=== PATIENT | male | born 1985 | race Caucasian/White ===

== ENCOUNTER 2021-12-08 02:48 | Emergency (ER) | payer MEDICAID ==
[~2021-12-08] VITALS: Ht 172.7 cm; Wt 70.0 kg
[2021-12-08] MEDS ORDERED: ondansetron 4mg rapidly disintigrating tab PO ONE (04:05)
[2021-12-08] MEDS ORDERED: oxyCODONE IR 5mg (immed. release) tablet PO ONE (04:05)
--- NOTE | 2021-12-08 04:41 | NUR ---
Patient refused pain medication, provider made aware. Pt. now taken to CT
[2021-12-08] MEDS ORDERED: TETanus/Pertussis (Acell)/Diphther VAC/PF (Tdap-Adult) 0.5ml syringe IMVAC ONE (06:25)
[2021-12-08] MEDS ORDERED: HYDROcodone/acetaminophen 5mg/325mg tablet PO ONE (06:25)
[2021-12-08] MEDS ORDERED: CEPH-585 PO (06:30)
[2021-12-08] MEDS ORDERED: HYDR-3965 PO (06:30)
[2021-12-08 08:40] VITALS: BP 129/71
--- NOTE | 2021-12-08 08:55 | NUR ---
Tech irrigated pt wound, pt wound site on R SIDE of head and face. No dressing was placed on pt.
== END 2021-12-08 09:15 | disposition home or self-care (01) ==
LOC: ER 02:49
DX: S43.101A Unspecified dislocation of right acromioclavicular joint, initial encounter (principal); S82.54XA Nondisplaced fracture of medial malleolus of right tibia, initial encounter for closed fracture; S01.01XA Laceration without foreign body of scalp, initial encounter; S70.212A Abrasion, left hip, initial encounter; Z79.2 Long term (current) use of antibiotics; Y04.0XXA Assault by unarmed brawl or fight, initial encounter; Y93.89 Activity, other specified; Y92.89 Other specified places as the place of occurrence of the external cause; Y99.8 Other external cause status
CPT/HCPCS: 29515; 70450; 73030; 73560; 73610; 90471; 90715; 99284; J7030; A6449